=== PATIENT | female | born 1995 | race Two or more races ===

== ENCOUNTER 2016-12-14 18:04 | Emergency (ER) | payer SELFPAY ==
[~2016-12-14] VITALS: Ht 162.6 cm; Wt 61.0 kg
[2016-12-14] MEDS ORDERED: TETANUS, DIPHTHERIA, PERTUSSIS VAC/PF 0.5ML (>7YR OLD) IM ONE (19:00)
[2016-12-14] MEDS ORDERED: KETOROLAC 30MG/ML VIAL IM ONE (19:00)
[2016-12-14] MEDS ORDERED: BACITRACIN ZINC OINT UDPKT TOP ONE (19:00)
[2016-12-14 19:58] VITALS: BP 122/80
== END 2016-12-14 20:00 | disposition home or self-care (01) ==
LOC: ER 18:13
DX: S01.85XA Open bite of other part of head, initial encounter (principal); S41.152A Open bite of left upper arm, initial encounter; W54.0XXA Bitten by dog, initial encounter; Y93.89 Activity, other specified; Y92.89 Other specified places as the place of occurrence of the external cause; Y99.8 Other external cause status
CPT/HCPCS: 90471; 90715; 96372; 99284; J1885; X7700; Z7610

== ENCOUNTER 2016-12-16 13:02 | Emergency (ER) | payer SELFPAY ==
[~2016-12-16] VITALS: Ht 160 cm; Wt 63.0 kg
[2016-12-16] MEDS ORDERED: BACITRACIN ZINC OINT UDPKT TOP ONE (18:45)
[2016-12-16 19:45] VITALS: BP 121/69
== END 2016-12-16 19:52 | disposition home or self-care (01) ==
LOC: ER 16:50
DX: Z48.00 Encounter for change or removal of nonsurgical wound dressing (principal)
CPT/HCPCS: 99282